=== PATIENT | male | born 1930 | race Caucasian/White ===

== ENCOUNTER 2017-07-26 16:04 | Emergency (ER) | payer MEDICARE ==
[~2017-07-26] VITALS: Ht 160 cm; Wt 65.0 kg
[2017-07-26] MEDS ORDERED: SODIUM CHLORIDE 0.9% 500 ML IV ONE (16:26)
[2017-07-26 16:48] LABS: BASOPHILS % 0.4 % (0.0-2.0); EOSINOPHILS % 1.6 % (0.0-5.0); HEMATOCRIT. 39.3 % (42.0-52.0); HEMOGLOBIN. 13.2 g/dL (14.0-18.0); LYMPHOCYTES % 21.6 % (20.0-50.0); MEAN CORPUSCULAR HEMOGLOBIN 29.8 pg (28.0-32.0); MEAN CORPUSCULAR VOLUME 88.9 fL (80.0-94.0); MONOCYTES % 14.5 % (2.0-8.0); NEUTROPHILS % 61.9 % (40.0-76.0); PLATELET 270 x1000/uL (130-400); RED BLOOD CELL COUNT 4.42 mill/uL (4.7-6.1); RED CELL DISTRIBUTION WIDTH 13.8 % (11.6-14.6)
[2017-07-26 16:54] LABS: INR 1.3; PROTHROMBIN TIME 13.3 sec (9.4-11.6)
[2017-07-26 16:55] LABS: CHLORIDE 106 mEq/L (98-107)
[2017-07-26 17:03] LABS: CARBON DIOXIDE 26 mEq/L (21-32); TROPONIN I < 0.02 ng/mL (0.00-0.04)
[2017-07-26] MEDS ORDERED: ASPIRIN 325MG TABLET PO ONE (18:00)
[2017-07-26] MEDS ORDERED: MOBI7 PO (18:29)
[2017-07-26] MEDS ORDERED: SIMV20TA6 PO (18:29)
[2017-07-26] MEDS ORDERED: METF500T4 PO (18:29)
[2017-07-26] MEDS ORDERED: GABA-529 PO (18:29)
[2017-07-26] MEDS ORDERED: METOPROLOL PO (18:29)
[2017-07-26] MEDS ORDERED: AMLO5TAB4 PO (18:29)
[2017-07-26] MEDS ORDERED: DOXA4TAB3 PO (18:29)
[2017-07-26] MEDS ORDERED: FINA5TAB11 PO (18:29)
[2017-07-26] MEDS ORDERED: ASPI-1159 PO (18:29)
[2017-07-26] MEDS ORDERED: PANT40TA4 PO (18:29)
[2017-07-26] MEDS ORDERED: HYDR-4009 PO (18:29)
[2017-07-26 18:45] VITALS: BP 161/86
== END 2017-07-26 19:07 | disposition left against medical advice (07) ==
LOC: ER 16:18 → EDBEDREQTM 17:57 → EDBEDREQ 17:57 → CANRESERV 18:20 → ENRESERV 18:20 → CANRESERV 18:22 → ENRESERV 18:22 → ER 19:07 → CANBEDREQ 19:09
DX: R07.9 Chest pain, unspecified (principal); R55 Syncope and collapse; I25.10 Atherosclerotic heart disease of native coronary artery without angina pectoris; R42 Dizziness and giddiness; I10 Essential (primary) hypertension; E11.9 Type 2 diabetes mellitus without complications; Z95.1 Presence of aortocoronary bypass graft
CPT/HCPCS: 36415; 70450; 71010; 80053; 84484; 85025; 85610; 93005; 96360; 96361; 99285; J7040